=== PATIENT | female | born 1970 | race Caucasian/White ===

== ENCOUNTER 2023-10-09 15:32 | Outpatient (CLI) | payer OTHER, SELFPAY ==
--- NOTE | ~2023-10-09 | MR_ITS ---
EXAMINATION: MR knee RT wo con DATE: 10/09/2023 16:23 INDICATION: 2 weeks of posterior right knee pain with catching and locking TECHNIQUE: Magnetic resonance imaging (MRI) of the right knee was performed without intravenous contr ast. Sequences included coronal PD-weighted FSE, coronal PD-weighted FS FSE, sagittal T2-weighted FS E, sagittal PD-weighted FS FSE and axial PD weighted fat saturated FSE. COMPARISON: None. FINDINGS: Medial compartment: Mild increased intrasubstance signal in the body and posterior horn of the medial meniscus which does not unambiguously contact the articular be consistent with mucoid degeneration without discrete tear . Deep chondral ulceration without degenerative subchondral changes along portions of the anterior to central weightbearing medial femoral condyle. Normal cartilage along the medial tibial plateau. Lateral compartment: Lateral meniscus is normal. Articular cartilage is normal. Patellofemoral compartment: Partial-thickness chondral ulceration and deep fissuring along the medial margin of the medial patell ar facet and the inferior margin of the medial and lateral patellar facets and intervening apical rid ge. Tiny focus of subarticular edema-like signal change at the inferior aspect of the lateral facet. Additional partial thickness chondral ulceration and deep fissuring without degenerative subchondral changes along the medial trochlea and trochlear groove. Moderate size marginal osteophytes are presen t along the patella and trochlea. Ligaments and tendons: Anterior and posterior cruciate ligaments are normal. The medial collateral ligament and fibular kiley ateral ligament complex are normal. The extensor mechanism is normal. The visualized medial and later al hamstring tendons as well as the iliotibial band are normal. Fluid: Small joint effusion with mild synovitis at the lateral gutter of the suprapatellar pouch. 3.1 x 1.7 x 1.4 cm collection of fluid, potentially a ganglion cyst within the popliteal recess. No loose osteo chondral bodies identified. Osseous/other: There is some patchy red marrow reexpansion within the distal metadiaphyseal region of the femur. Mar row signal is otherwise unremarkable. No fracture or pathologic marrow replacing process. IMPRESSION: 1. Mild medial and patellofemoral compartment osteoarthritis, each with extensive moderate grade herlinda dromalacia and small focus of high-grade chondromalacia along the inferior lateral patellar facet. 2. 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 Reviewed, dictated and finalized at location A. IMPRESSION: 1. Mild medial and patellofemoral compartment osteoarthritis, each with extensi ve moderate grade chondromalacia and small focus of high-grade chondromalacia a long the inferior lateral patellar facet. 2. 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
== END 2023-10-09 15:33 ==
PROVIDERS: PCP Internal Medicine; Visit Provider Orthopaedic Surgery
DX: S83.241A Other tear of medial meniscus, current injury, right knee, initial encounter (principal); M17.11 Unilateral primary osteoarthritis, right knee; M94.261 Chondromalacia, right knee; X58.XXXA Exposure to other specified factors, initial encounter
CPT/HCPCS: 73721

== ENCOUNTER 2024-01-28 07:05 | Day surgery (SDC) | payer OTHER, SELFPAY ==
[2023-07-28 15:18] VITALS: BMI 35.5
[2023-11-18 15:10] VITALS: BMI 35.9
[2024-01-21 08:15] VITALS: BMI 35.5
[2024-01-28 07:44] VITALS: BP 128/78; PULSE 79; RESP 16; TEMP 36.6; O2SAT 97
[2024-01-28] MEDS: LACTATED RINGERS 1,000 ML 150 ML IV CONT (07:47)
--- NOTE | 2024-01-28 07:56 | PM.HPGS ---
History of Present Illness History of Present Illness Consent: Risks, benefits, and alternatives have been discussed and questions answered. Patient agrees to proceed with procedure. Chief complaint: Neoplasm Screening Narrative: Brittany Goodson is a 53 year old female presents for screening colonoscopy. Patient's current weight appetite and bowel movements are normal. Patient denies abdominal pain. She has had no bleeding. Family history is noncontributory. Review of Systems Review of Systems: All systems reviewed & are unremarkable except as noted in HPI and below PMFSH Past Medical History Medical History Anxiety disorder Depression Hyperlipidemia Obesity Surgical History Surgical History H/O gynecological procedure 2009 - mirena IUD insertion 04/11/2016 -Mirena iud removal / reinsertion History of bladder surgery Repair of stress incontinence by suprapubic sling History of orthopedic surgery Total replacement of hip Family History Family History Mother Alcoholism Father Alcoholism Malignant tumor of oral cavity Social History Social History Smoking status: Former smoker Tobacco type: cigarettes Alcohol intake: current Drinks per week: 10 Alcohol use details: socially Substance use: never Substance use type: does not use Do You Feel Safe in your Home?: Yes Lack of Transportation: No Lack of Food: Never True Current Housing: I Have Housing Concerned About Future Housing: No Difficulty Paying Gas/Electric Bills: No Difficulty Paying for Meds: No Currently Unemployed: No Education: Bachelor's Degree Difficulty w/ Childcare or Family Care: No Living arrangements: with family Occupation/Education: occupation Gender identity (if verbalized by the patient): Female Sexual Orientation (if Verbalized by the Patient): Straight or Heterosexual Spiritual care concerns: No Meds Home Medications and Allergies Home Medications Medication Instructions Recorded Confirmed Type alprazolam 0.5 mg tablet 0.5 mg PO DIRECTED PRN Anxiety 04/26/19 01/28/24 History escitalopram oxalate 20 mg tablet 20 mg PO DAILY 04/26/19 01/28/24 History simvastatin 40 mg tablet 40 mg PO DAILY 04/26/19 01/28/24 History clobetasol 0.05 % topical ointment 1 applic topical DAILY 2 weeks #60 01/06/24 01/28/24 Rx grams meloxicam 15 mg tablet 15 mg PO DAILY 01/06/24 01/28/24 History Allergies Allergy/AdvReac Type Severity Reaction Status Date / Time No Known Allergies Allergy Verified 01/28/24 07:43 Vital Signs Vital Signs - 24 hr 01/28/24 07:44 Temperature 98 F Pulse Rate 79 Respiratory Rate 16 Blood Pressure 128/78 Pulse Oximetry 97 Oxygen Delivery Room Air Exam Narrative: Physical exam reveals patient to be alert. Vital signs stable. HEENT exam is unremarkable. Patient is anicteric. Lungs are clear to auscultation and percussion. Heart is without murmur or extra sounds. Abdomen bowel sounds are present soft nontender with no organomegaly. Digital external rectal exam is normal. Assessment and Plan Assessment and plan (1) Screen for colon cancer: Code(s): Z12.11 - Encounter for screening for malignant neoplasm of colon Status: Acute Assessment and Plan: Patient presents today for neoplasia screening colonoscopy. She appears to be at average risk for colon polyps. Further recommend may be given after endoscopy.
--- NOTE | 2024-01-28 08:27 | WPDANESEPPF ---
Anes - Initial Pre Proc Eval Procedure: Operation Date: 01/28/24 09:00 Proposed Procedures p Screening Colonoscopy - James Caro MD Date/Time: 01/28/24 08:27 Surgeon: James Caro MD Pre Op Diagnosis: Neoplasm Screening Patient Data Age: 53 Gender: F Height: 1.7 m Weight: 103.65 kg Last Vital Signs Temp 98 F 01/28/24 07:44 Pulse 79 01/28/24 07:44 Resp 16 01/28/24 07:44 BP 128/78 01/28/24 07:44 Pulse Ox 97 01/28/24 07:44 O2 Del Method Room Air 01/28/24 07:44 Allergies Allergy/AdvReac Type Severity Reaction Status Date / Time No Known Allergies Allergy Verified 01/28/24 07:43 Home Medications Medication Instructions Recorded Confirmed Type alprazolam 0.5 mg tablet 0.5 mg PO DIRECTED PRN Anxiety 04/26/19 01/28/24 History escitalopram oxalate 20 mg tablet 20 mg PO DAILY 04/26/19 01/28/24 History simvastatin 40 mg tablet 40 mg PO DAILY 04/26/19 01/28/24 History clobetasol 0.05 % topical ointment 1 applic topical DAILY 2 weeks #60 01/06/24 01/28/24 Rx grams meloxicam 15 mg tablet 15 mg PO DAILY 01/06/24 01/28/24 History Patient hx anesthesia problems: none Family hx anesthesia problems: none Results Review: All pre-operative results and documents have been reviewed as part of the pre-operative evaluation. [facility] Past Medical History Medical History Anxiety disorder Depression Hyperlipidemia Obesity Surgical History Surgical History H/O gynecological procedure 2009 - mirena IUD insertion 04/11/2016 -Mirena iud removal / reinsertion History of bladder surgery Repair of stress incontinence by suprapubic sling History of orthopedic surgery Total replacement of hip Family History Family History Mother Alcoholism Father Alcoholism Malignant tumor of oral cavity Social History Social History Smoking status: Former smoker Tobacco type: cigarettes Alcohol intake: current Drinks per week: 10 Alcohol use details: socially Substance use: never Substance use type: does not use Do You Feel Safe in your Home?: Yes Lack of Transportation: No Lack of Food: Never True Current Housing: I Have Housing Concerned About Future Housing: No Difficulty Paying Gas/Electric Bills: No Difficulty Paying for Meds: No Currently Unemployed: No Education: Bachelor's Degree Difficulty w/ Childcare or Family Care: No Living arrangements: with family Occupation/Education: occupation Gender identity (if verbalized by the patient): Female Sexual Orientation (if Verbalized by the Patient): Straight or Heterosexual Spiritual care concerns: No Anes - Eval Final PreProcedure Day of Procedure 01/28/24 08:27 Patient weight: morbidly obese Heart: regular rate and rhythm Lungs: clear to auscultation Airway: Mallampati scale class II Neurological: alert and oriented Last oral intake: >/= 8 hours ASA classification: III Emergent: no Anesthetic plan: proceed Anesthesia type and monitoring: general GIVS Results Review: All pre-operative results and documents have been reviewed as part of the pre-operative evaluation. Informed Consent: The patient's anesthetic plan and its attendant risks and benefits were discussed with the patient/family/POA. Questions were solicited and answers provided to the satisfaction of the patient/family/POA.
[2024-01-28 08:57] VITALS: BP 125/82; PULSE 75; RESP 12; O2SAT 97
[2024-01-28 09:07] VITALS: BP 119/73; PULSE 74; RESP 16; O2SAT 100
[2024-01-28 09:17] VITALS: BP 123/77; PULSE 65; RESP 18; O2SAT 100
--- NOTE | 2024-01-28 10:44 | WPDANESPN ---
Anes - Prog Note Post-Op Date/Time: 01/28/24 10:44 Cardiovascular status: normal Respiratory status: normal Airway patency: baseline Mental status: baseline Post-Op hydration status: normal Vital Signs: Last Vital Signs Temp 36.6 C 01/28/24 07:44 Pulse 65 01/28/24 09:17 Resp 18 01/28/24 09:17 BP 123/77 01/28/24 09:17 Pulse Ox 100 01/28/24 09:17 O2 Del Method Room Air 01/28/24 09:17 Pain Score (VAS): 0/10 I/O: Intake & Output 01/27/24 01/28/24 01/28/24 23:59 07:59 15:59 Intake Total 600 Balance 600 Patient Feedback: Patient satisfied with anesthetic care.
== END 2024-01-28 09:36 | disposition home or self-care (01) ==
PROVIDERS: PCP Internal Medicine; Visit Provider Internal Medicine Gastroenterology
PROC: 0DJD8ZZ Inspection of Lower Intestinal Tract, Via Natural or Artificial Opening Endoscopic (ICD-10-PCS; CPT 45378; principal; 2024-01-28 09:00)
DX: Z12.11 Encounter for screening for malignant neoplasm of colon (principal); K57.30 Diverticulosis of large intestine without perforation or abscess without bleeding; K64.8 Other hemorrhoids
CPT/HCPCS: 45378

== ENCOUNTER 2024-04-08 08:22 | Outpatient (CLI) | payer OTHER, SELFPAY ==
--- NOTE | ~2024-04-08 | MMUS_ITS ---
EXAMINATION: MM diagnostic giovana BI w marixa, US breast BI complete HISTORY: Breast pain. TECHNIQUE: Additional 3-D tomosynthesis images of the breasts were performed and synthetic 2-D images were generated. CAD analysis was submitted and interpreted. High resolution bilateral complete breas t ultrasound was performed. COMPARISON: No prior studies for comparison. BREAST PARENCHYMAL COMPOSITION: Not dense: There are scattered areas of fibroglandular density. FINDINGS: MAMMOGRAPHIC FINDINGS: There is a subtle low-density mass in the upper central aspect of the right breast, middle third. The re are no suspicious calcifications or architectural distortion. There are no suspicious masses, calc ifications or architectural distortion in the left breast to suggest malignancy. ULTRASOUND: Complete US of all 4 quadrants of the breast/s and retroareolar region was reviewed. Right breast: There are cysts of the right breast, largest measuring 6 mm at 10:00, 2 cm from the nip ple. No sonographic abnormality is identified in the area of the low density mass seen on mammography . Left breast: At 1:00, 4 cm from the nipple there is a 4 mm cyst. At 8:00, 4 cm from the nipple there is a slightly irregular shaped cyst measuring 6 mm, likely benign. At 9:00, 6 cm from the nipple ther e is a cluster of microcysts measuring 9 mm. At 9:00, 6 cm from the nipple there is a 3 mm cyst. IMPRESSION: 1. Probable benign bilateral breast findings. 2. Recommend 6 month follow-up diagnostic right mammogram and Limited bilateral breast ultrasound BI-RADS category 3, probably benign findings. Reviewed, dictated and finalized at location B. CLING SPECIALIST IMPRESSION: 1. Probable benign bilateral breast findings. 2. Recommend 6 month follow-up diagnostic right mammogram and Limited bilatera l breast ultrasound BI-RADS category 3, probably benign findings.
== END 2024-04-08 08:23 | disposition home or self-care (01) ==
PROVIDERS: PCP Internal Medicine; Visit Provider Obstetrics & Gynecology
DX: N63.20 Unspecified lump in the left breast, unspecified quadrant (principal); R92.8 Other abnormal and inconclusive findings on diagnostic imaging of breast
CPT/HCPCS: 76641; 77062; 77066; G0279

== ENCOUNTER 2025-04-21 12:17 | Outpatient (CLI) | payer OTHER, SELFPAY ==
--- NOTE | ~2025-04-21 | MMUS_ITS ---
EXAMINATION: MM diagnostic giovana BI w marixa, US breast LT limited INDICATION: 54-year old female; BI-RADS 3, short-term follow-up probably benign bilateral breast findings. COMPARISON: 04/08/2024 through 10/27/2018 TECHNIQUE: Digital breast tomosynthesis True lateral, CC and MLO views with additional views of both breasts were obtained with computer-aided detection to assist in interpretation of the study. MAMMOGRAM FINDINGS: There are scattered areas of fibroglandular density. The previously reported low density mass in the right breast is unchanged dating back to the mammogram of 10/27/2018. It is therefore considered benign. No new suspicious mass, calcifications or architectural distortion to suggest malignancy in the left breast. LEFT BREAST ULTRASOUND FINDINGS: Targeted evaluation of the areas of concern was completed. 0.7 cm anechoic mass at 1:00 location 4 cm from the nipple in the LEFT breast redemonstrated is Unchanged. This finding represent a cyst. IMPRESSION: Benign LEFT breast finding is unchanged. No mammographic evidence of malignancy within the right breast. RECOMMENDATION: Annual screening bilateral mammography in 12 months. BI-RADS 2, BENIGN Reviewed, dictated and finalized at location B. ER ENGINEER HELPER IMPRESSION: Benign LEFT breast finding is unchanged. No mammographic evidence of malignancy within the right breast. RECOMMENDATION: Annual screening bilateral mammography in 12 months. BI-RADS 2, BENIGN
--- OUTSIDE RECORDS SUMMARY | 2025-04-21 12:23 | XMS_ITS | Clinical Summary ---
Author Organization [facility] Healthcare Address [address] [place] [address] Care Team Providers Care Machining Engineer Name Role Phone Grupo Giraldo MD Primary Care Provider [phone] Allergies No known active allergies Medications traMADoL (ULTRAM) 50 mg tablet Take 1 tablet (50 mg total) by mouth every 8 (eight) hours as needed for pain 30 tablet 09/29/2023 Active valACYclovir (VALTREX) 1 gram tablet Take 2 tabs (2000 mg) 2 times a days for 1 day. 12 tablet 3 05/23/2024 Active ALPRAZolam (XANAX) 0.5 mg tablet Take 1 tablet (0.5 mg total) by mouth 2 (two) times a day as needed for anxiety 180 tablet 11/23/2024 Active simvastatin (ZOCOR) 40 mg tablet TAKE 1 TABLET(40 MG) BY MOUTH EVERY NIGHT 90 tablet 1 12/18/2024 Active escitalopram (LEXAPRO) 20 mg tablet TAKE 1 TABLET(20 MG) BY MOUTH DAILY 90 tablet 1 01/22/2025 Active meloxicam (MOBIC) 15 mg tablet Take 1 tablet (15 mg total) by mouth daily 90 tablet 1 02/07/2025 Active Active Problems Problem Noted Date Diagnosed Date Elevated liver enzymes 11/21/2024 Lumbar radiculopathy 05/23/2024 Acute pain of right knee 09/17/2023 Assessment & Plan (09/17/2023 3:33 PM CDT): Meloxicam daily PRN Compression brace, on in AM/off in PM as improving can take it off more Topical diclofenac Ice after activity Will obtain XR today Exercise handout given today, to start once improving Impaired fasting glucose 02/14/2020 Overview (02/14/2020): a1c is fine. continue diet and exercise Incomplete bladder emptying 02/07/2020 Painful urination 02/07/2020 Hyperlipidemia 11/16/2018 Anxiety and depression 06/03/2018 Primary osteoarthritis of right hip 03/19/2018 Overview (03/19/2018): Added automatically from request for surgery [id number] Resolved Problems Problem Noted Date Diagnosed Date Resolved Date Routine general medical exam ination at a health care facility 02/14/2020 09/17/2023 Overview (02/14/2020): check routine labs Acute cystitis without hematuria 02/07/2020 09/17/2023 Encounters Date Type Department Care Team Description 01/25/2025 Orders Only [facility] [address] [place] [address] Amniah JeanissaSMITA Urinary tract infection without hematuria, site unspecified (Primary Dx) 01/20/2025 Results Follow-Up [facility] [address] [place] [address] Grupo Giraldo MD Urinalysis reflex to microscopic and culture Urine, REFLEXIVE URINE CULTURE, Urine culture from Last 3 Months Surgical History Surgery Date Site/Laterality Comments HIP SURGERY JOINT REPLACEMENT OTHER SURGICAL HISTORY sling procedure Medical History Medical History Date Comments Arthritis Anemia Headache Migraines Osteoarthritis Anxiety Family History Medical History Relation Name Comments Arthritis Maternal Grandmother Diabetes Maternal Grandmother Relation Name Status Comments Maternal Grandmother Social History Tobacco Use Types Packs/Day Years Used Date Smoking Tobacco: Former Cigarettes Q uit: 04/17/2018 Smokeless Tobacco: Never Tobacco Cessation:Counseling Given: Not Answered Comments:Social Alcohol Use Standard Drinks/Week Comments Yes 4 (1 standard drink = 0.6 oz pur e alcohol) Social PHQ-2 Answer Date Recorded PHQ-2 Total Score (If total score is 3 or more points, staff should administer the PHQ-9) 0 05/18/2023 Comments No Sex and Gender Information Value Date Recorded Sex Assigned at Not on file Legal Sex Female 6:48 AM PROGRAM SUPPORT ASSISTANT Gender Identity Not on file Sexual Orientation Not on file Last Filed Vital Signs Vital Sign Reading Time Taken Comments Blood Pressure 134/85 11/21/2024 8:09 AM CDT Pulse 84 11/21/2024 8:09 AM CDT Temperature 36.2 C (97.1 F) 04/11/2020 12:07 PM PROGRAM SUPPORT ASSISTANT Respiratory Rate 14 06/05/2018 3:49 AM PROGRAM SUPPORT ASSISTANT Oxygen Saturation 96% 11/21/2024 8:09 AM CDT Inhaled Oxygen Concentration - - Weight 106.1 kg (234 lb) 11/21/2024 8:09 AM CDT Height 167.6 cm (5' 6) 11/21/2024 8:09 AM CDT Body Mass Index 37.77 11/21/2024 8:09 AM CDT Plan of Treatment Scheduled Procedures Name Priority Associated Diagnoses Date/Ti me COLONOSCOPY Colon cancer screening COLONOSCOPY Encounter for screening colonoscopy COLONOSCOPY Encounter for screening colonoscopy Health Maintenance Due Date Last Done Comments Cervical Cancer Screening 1970 DTaP/Tdap/Td Vaccine (1 - Tdap) 1981 Hepatitis B Screening 1988 Zoster Vaccine (1 of 2) 2020 Depression Screening 05/18/2024 05/18/2023 Covid-19 Vaccine (3 - season) 2025 06/20/2021, 05/30/2021 Influenza Vaccine (#1) 2025 Breast Cancer Screening-Mammogram 04/18/2025 04/18/2024 Regular Well Visit/Exam 18-64 05/23/2025 05/23/2024, 05/18/2023, 04/22/2022, Additional history exists Colon Cancer Screening-Colonoscopy 01/27/2034 01/28/2024 Hepatitis C Screening Completed 05/23/2024 Pneumococcal vaccine <65 Aged Out No longer eligible based on patient's age to complete this topic Medical Devices Implanted Type Area Antiquer Device Identifier Shelf Expiration Date Model / Serial / Lot [employer] [id number] Continuum 50mm 12 Scallop Cluster Hole Snap Fit Groove Integrate - S0 - [id number] Implanted:Qty: 1 on 06/04/2018 by Robin Turner MD at [facility] Right: Hip [employer] [id number] 04/30/2028 [id number] / 0 / [id number] [employer] [id number] 50mm 32mm Hip Hh Neutral Liner Acetabular Longevity Continuum - S0 - [id number] Implanted:Qty: 1 on 06/04/2018 by Robin Turner MD at [facility] Right: Hip [employer] [id number] 08/29/2022 [id number] / 0 / [id number] [employer] [id number] Trilogy 6.5mm 25mm Self Tap Screw Bone - S0 - [id number] Implanted:Qty: 1 on 06/04/2018 by Robin Turner MD at [facility] Right: Hip [employer] [id number] 03/31/2028 [id number] / 0 / [id number] [employer] [id number] Trilogy 6.5mm 35mm Self Tap Screw Bone - S0 - [id number] Implanted:Qty: 1 on 06/04/2018 by Robin Turner MD at [facility] Right: Hip [employer] [id number] 03/31/2028 [id number] / 0 / [id number] [employer] [id number] Taperloc 137mm Type 1 Press Fit Full Profile Hip 133d 9 Standard - S0 - [id number] Implanted:Qty: 1 on 06/04/2018 by Robin Turner MD at [facility] Right: Hip [employer] 10/11/2027 [id number] / 0 / [id number] [employer] [id number] 32mm Modular Hip Standard Head Femoral Biolox Delta - S0 - [id number] Implanted:Qty: 1 on 06/04/2018 by Robin Turner MD at [facility] Right: Hip [employer] [id number] 10/10/2026 [id number] / 0 / [id number] Procedures Procedure Name Priority Date/Time Associated Diagnosis Comments HEPATITIS C ANTIBODY Routine 05/23/2024 9:42 AM PROGRAM SUPPORT ASSISTANT Routine general medical examination at a health care facility Encounter for hepatitis C screening test for low risk patient Impaired fasting glucose Lumbar radiculopathy from Last 3 Months or Most Recently Relevant to Health Maintenance Results * Hepatitis C antibody Blood (05/23/2024 9:42 AM PROGRAM SUPPORT ASSISTANT) Hep C Ab Nonreactive Nonreactive Comment:Antibodies to HCV no t detected. Does NOT exclude the possibility of recent exposure to HCV. Current interpretive data was last revised on 22 Blood 05/23/2024 9:42 AM PROGRAM SUPPORT ASSISTANT 05/23/2024 10:20 AM PROGRAM SUPPORT ASSISTANT Grupo Giraldo MD LAB MICROBIOLOGY - GENERAL OR DERABLES Final Result Performing Organization Address City/State/[facility] Phone Number [facility] Department [place] [address] from Last 3 Months or Most Recently Relevant to Health Maintenance Insurance [facility] CHOICE PLUS [facility] ACCESS CHOICE [facility] CHOICE PLUS [facility] CHOICE PLUS Advance Directives For more information, please contact: [phone] * Full Code (Latest Code Status on File) Date Activated Date Inactivated Comments 06/04/2018 1:10 PM 06/05/2018 2:49 PM Care Teams Machining Engineer Relationship Specialty Start Date End Date Grupo Giraldo MD PCP - General Internal Medicine 02/02/20
--- OUTSIDE RECORDS SUMMARY | 2025-04-21 12:23 | XMS_ITS | Clinical Summary ---
Author Organization [facility] Address [address] [place] [address] Care Team Providers Care Cyber Intelligence Analyst Name Role Phone Unavailable Primary Care Provider Unavailabl e Social History Tobacco Use Types Packs/Day Years Used Date Smoking Tobacco: Never Assessed Comments Unknown Sex and Gender Information Value Date Recorded Sex Assigned at Not on file Legal Sex Female 9:16 AM FLYING II INSTRUCTOR Gender Identity Not on file Sexual Orientation Not on file Plan of Treatment Health Maintenance Due Date Last Done Comments Hepatitis C Virus (HCV) Screening 1970 TdaP Immunization 1970 Hepatitis B Immunization (1 of 3 - 19+ 3-dose series) 1989 Pap Smear 09/27/1991 Cervical Cancer Screening (CCS) 2000 HPV/Cotest 2000 Cologuard 09/27/2015 Colonoscopy 09/27/2015 Colorectal Cancer Screening 09/27/2015 Immunochemical Fecal Occult Blood 09/27/2015 Pneumococcal Immunization (5 0+ years) (1 of 1 - PCV) 2020 Zoster Immunization (1 of 2) 2020 Influenza Immunization (#1) 2025 SARS-COV-2 Immunization ( season) 2025 Respiratory Syncytial Virus (RSV) Immunization (Adult) (1 - 1-dose 75+ series) 2045 Human Papillomavirus (HPV) Immunization Aged Out No longer eligible b ased on patient's age to complete this topic Meningococcal Immunization (ACWY) Aged Out No longer eligible based on patient's age to complete this topic Rotavirus Immunization Aged Out No lo nger eligible based on patient's age to complete this topic Insurance [employer] on file
== END 2025-04-21 12:18 | disposition home or self-care (01) ==
LOC: ANHFOHIMG 12:20
PROVIDERS: PCP Internal Medicine; Visit Provider Obstetrics & Gynecology
DX: N60.01 Solitary cyst of right breast (principal); N60.02 Solitary cyst of left breast
CPT/HCPCS: 76642; 77062; 77066; G0279